=== PATIENT | female | born 2000 | race African-American/Black ===

== ENCOUNTER 2023-06-28 07:02 | Emergency (ER) | payer OTHER, SELFPAY ==
--- NOTE | ~2023-06-28 | US_ITS ---
HISTORY: HCG 86 907 Positive urine beta hCG. TECHNIQUE: The pelvis was examined via transabdominal only approaches. Calderon-scale imaging was performed, with color Doppler and spectral Doppler supplementation. COMPARISON: None. LMP unknown FINDINGS: An intrauterine gestational sac contains a pole and yolk sac. [place] rump length measures 1.15 cm, corresponding to an estimated gestational age of 7 weeks 3 days. heart rate measures 167 BPM. Mean gestational age by ultrasound measurements is 7 weeks 3 days, for an estimated date of delivery of 02/03/2024. The ovaries appear unremarkable. The right ovary measures 4.2 x 2.1 x 3.5 cm. The left ovary measures 3.3 x 2.4 x 3.9 cm. There is corpus luteum cyst measured 2.0 x 1.4 x 2.6 cm No free fluid is seen in the pelvis. US/US OB limited IMPRESSION: Single live intrauterine gestation at 7 weeks 3 days by ultrasound measurements.
--- NOTE | 2023-06-28 07:16 | ECG_ITS ---
Test Reason : DRUG USE Blood Pressure : / mmHG Vent. Rate : 080 BPM Atrial Rate : 080 BPM P-R Int : 146 ms QRS Dur : 080 ms QT Int : 398 ms P-R-T Axes : 079 060 045 degrees QTc Int : 459 ms Normal sinus rhythm with sinus arrhythmia Septal infarct , age undetermined Abnormal ECG No previous ECGs available Referred By: Generic ED Physician Electronically Signed By:FAUSTINO JAMES MD
[2023-06-28 07:19] VITALS: BP 121/84; PULSE 77; RESP 19; TEMP 36.5; O2SAT 100; BMI 22.5
[2023-06-28 07:20] VITALS: PULSE 97
--- NOTE | 2023-06-28 07:35 | ED_ITS ---
HPI - General Adult General Chief complaint: ETOH/Substance Use Stated complaint: drug reaction? Time Seen by Provider: 06/28/23 07:34 Source: patient Mode of arrival: ambulatory Limitations: other (poor historian ) History of Present Illness HPI narrative: 23 year old female presents w/ n/v/ and stating her inside hurts X few hours. Reports drank a few shots of tequila and had three bags of cocaine . States she uses cocaine periodically. Poor historian screaming help me please and I need water now . When I ask her to show me where it hurts she says i dont know.. i just need electrolytes . Difficult to obtain an accurate ROS and history Related Data Previous Rx's Medication Instructions Recorded mv-mn no.97-folic 180 mcg-dha 25 1 tab PO DAILY 30 days #30 tabs 06/28/23 mg-herb no.293 25 mg chewable tablet (Alive Daily Support ) Allergies Allergy/AdvReac Type Severity Reaction Status Date / Time No Known Allergies Allergy Verified 06/28/23 07:26 Review of Systems 2 Review of Systems: Constitutional : No Weight loss, No Fever, No Chills, No Fatigue, No Malaise ENT/Mouth : No sore throat, No Rhinorrhea Eyes: No Eye Pain, No Swelling, No Redness Cardiovascular : No Chest Pain, No SOB, No Dyspnea on Exertion, No Orthopnea, No Edema, No Palpitations Respiratory : No Cough, No Sputum, No Wheezing Gastrointestinal : + Nausea, + Vomiting, No Diarrhea, No Constipation, + abdominal Pain, No Hematochezia, No Melena Genitourinary : No Dysuria, No Urinary Frequency, No Hematuria, Musculoskeletal : No joint pain, No Myalgias, No Joint Swelling Skin : No Skin Lesions, No rash Neuro : No Weakness, No Numbness, No Dizziness, No Headache Psych : No Anxiety/Panic, No Depression All other systems reviewed and are negative Yes all other systems are reviewed and are negative PMFSH Past Medical History Attestation statement: The following information was validated with the patient. Source: old records reviewed and nursing notes reviewed Onset Date is defined in the Problem List Problems that require an onset date and time if occurred within 24 hrs of arrival to the ED Aortic Dissection and Rupture; Neurologic impairment; Cardiopulmonary Arrest; Endotracheal Intubation; Insertion or Replacement of Mechanical Circulatory Assist Device Social History Social History Smoked in Last 30 Days: Yes Use of substances other than those prescribed or required for medical reasons: Yes Substance Use Type: Crack/Cocaine and Marijuana Advance Directives: No Physical Exam ED Vital Signs: Vital Signs - 24 hr 06/28/23 07:19 Temperature 97.7 F Pulse Rate 77 Respiratory Rate 19 Blood Pressure 121/84 Pulse Oximetry 100 Oxygen Delivery Method Room Air BMI result Body Mass Index 22.5 vss Appearance: Alert.? Oriented X3.? No acute distress.? Head: Normocephalic, atraumatic, no step-offs or deformities Eyes: Pupils equal, round and reactive to light.? ENT: Pharynx normal.? Neck: Normal inspection.? Neck supple.? CVS: Normal heart rate and rhythm.? Pulses normal.? Respiratory: No respiratory distress.? Breath sounds normal.? Abdomen: Soft and nontender.? Skin: Skin warm and dry.? Normal skin color.? Normal skin turgor.? Extremities: No lower extremity edema.? No calf ttp. 5/5 strength to bilateral upper and lower extremitiesNeuro: Oriented X 3.? No motor deficit.? No sensory deficit. CN 2-12 intact Course Reevaluation(s) Reevaluation #1: CBC unremarkable. Chemistry elevated calcium. IV fluids given. Troponin negative. No other electrolyte abnormalities requiring intervention. HCG elevated. Patient doesnt know when her LMP was. Ethanol negative. Time: 09:59 Reevaluation #2: Ultrasound showing a single live intrauterine gestation 7 weeks 3 days by ultrasound, heart rate 167, no signs of ovarian torsion. Patient to be discharged home with vitamins, PCP and OBGYN follow-up here Educated patient on diagnosis and treatment plan, answered all question, patient verbalizes understanding. At this time patient will be discharged home, advised to return with new or worsening symptoms. Educated on worrisome signs and symptoms and when to return. At this time I feel comfortable discharge home. Time: 13:37 Medications Administered Discontinued Medications Generic Name Dose Route Start Last Admin Trade Name Freq PRN Reason Stop Dose Admin Diphenhydramine HCl 25 mg 06/28/23 07:37 06/28/23 08:19 Diphenhydramine Hcl 50 Mg/Ml Vial IVPUSH 06/28/23 07:38 25 mg ONCE ONE Administration Sodium Chloride 1,000 mls @ 999 mls/hr 06/28/23 07:45 06/28/23 09:54 Ns IV 06/28/23 08:45 Infused .Q1H1M KENYA Infusion Metoclopramide HCl 10 mg 06/28/23 07:37 06/28/23 08:19 Metoclopramide Hcl 10 Mg/2 Ml Vial IVPUSH 06/28/23 07:38 10 mg ONCE ONE Administration Medical Decision Making Medical Decision Making [facility] Narrative: 0736 23-year-old female presents with nausea, vomiting and abdominal pain after significant drug and alcohol use last night. Physical examination diffuse abdominal discomfort. Patient dry heaving History and physical exam concerning for alcohol intoxication/toxicity and polysubstance abuse. Low suspicion for acute abdomen, appendicitis, diverticulitis, cholecystitis, pancreatitis, obstruction. Will rule out metabolic derangements although unlikely. Will also rule out Plan- labs, fluids, meds Differential Diagnosis Differential Diagnoses: The differential diagnosis associated with the presentation includes History and physical exam concerning for alcohol intoxication/toxicity and polysubstance abuse. Low suspicion for acute abdomen, appendicitis, diverticulitis, cholecystitis, pancreatitis, obstruction. Will rule out metabolic derangements although unlikely. Will also rule out Admission/Observation Consideration of admission/observation: Escalation of care including admission/observation considered possible Lab Data [facility] Lab Attestation statement: I reviewed the patient's lab results. 06/28/23 07:55 06/28/23 07:55 Labs: Lab Results 06/28/23 Range/Units 07:55 WBC 7.8 (4.8-10.8) X10*3/uL RBC 5.23 (4.20-5.50) X10*6/uL Hgb 15.8 (12.0-16.0) g/dl Hct 45.5 (37.0-47.0) % MCV 87.0 (80.0-98.0) fL MCH 30.2 (27.0-33.0) pg MCHC 34.7 (31.0-35.0) g/dl RDW 12.8 (11.0-16.0) % Plt Count 362 (160-400) X10*3/uL MPV 9.3 L (9.4-12.3) fL Immature Gran % (Auto) 0.3 (0.0-0.4) % Neut % (Auto) 88.3 H (45-73) % Lymph % (Auto) 8.0 L (20-40) % [place] % (Auto) 3.1 (2-11) % Eos % (Auto) 0.0 (0-4) % Baso % (Auto) 0.3 (0-2) % Lymph # (Auto) 0.6 L (1.2-4.9) X10*3/uL [place] # (Auto) 0.2 (0.1-1.2) X10*3/uL Eos # (Auto) 0.0 (0.0-0.4) X10*3/uL Baso # (Auto) 0.0 (0.0-0.2) X10*3/uL Abs Immat Gran (auto) 0.02 (0.00-0.03) X10*3/uL Absolute Neuts (auto) 6.9 (2.0-8.3) x10*3/uL Absolute Nucleated RBC 0.000 (0.0-0.012) X10*3/uL Nucleated RBC % (auto) 0.0 (0.0-0.2) /100WBC Sodium 135 (135-145) mmol/L Potassium 4.3 (3.3-5.1) mmol/L Chloride 98 (96-108) mmol/L Carbon Dioxide 22 (22-29) mmol/L Anion Gap 19 (12-20) BUN 7 L (9-16) mg/dL Creatinine 0.76 (0.5-1.4) mg/dL Estim Creat Clear Calc 88.3 Estimated GFR > 60 Random Glucose 139 H (60-115) mg/dL Calcium 11.0 H (8.4-10.2) mg/dL Magnesium 1.9 (1.6-2.6) mg/dL Total Bilirubin 0.3 (0.0-1.0) mg/dL AST 22 (5-31) U/L ALT 12 (0-31) U/L Alkaline Phosphatase 83 (39-117) U/L Troponin I High Sens < 2.7 (<3.5-17.0) ng/L Total Protein 9.2 H (6.5-8.0) g/dL Albumin 4.9 (3.5-5.0) g/dL Lipase 12 (8-78) U/L Beta HCG, Quant 70860 mIU/mL Ethyl Alcohol < 10 mg/dL Independent Interpretation I performed an independent interpretation of an: EKG (Ventricular rate of 80 MI normal, QRS normal, QT/QTC normal. EKG normal sinus rhythm with sinus arrhythmia no ST elevations or inversions concerning for acute ischemia), Plain X-Ray and Ultrasound (US/US OB limited IMPRESSION: Single live intrauterine gestation at 7 weeks 3 days by ultrasound measurements. ) Radiology Impression Discussion of test interpretation with radiology: I have reviewed the radiologist's reading. Critical Care Time Critical Care Time Critical Care Time: No Discharge Plan Discharge Clinical Impression: Hangover, , Cocaine use disorder, Nausea & vomiting Patient Disposition: Home, Self-Care Instructions: (ED), Cocaine Abuse (ED), Abuse of Alcohol (ED), Acute Nausea and Vomiting (ED) Additional Instructions: Take your medications as prescribed. If you were prescribed antibiotics today, it is important that you take your medication to their entirety, do not skip any doses, do not finish them early. Follow-up with your primary care provider this week. Return to the emergency department with new or worsening symptoms. Such as fevers, chills, chest pain, shortness of breath, nausea, vomiting, dizziness, headache, vision changes, lethargy, vaginal bleeding In case of emergency call 911 Please start taking vitamins. Follow-up with OBGYN. US/US OB limited IMPRESSION: Single live intrauterine gestation at 7 weeks 3 days by ultrasound measurements. Prescriptions: New Alive Daily Support 180 mcg-25 mg- 25 mg tablet,chewable 1 tab PO DAILY 30 Days Qty: 30 0RF Referrals: [facility] [place] [facility] [Provider Group] - 2 days Jaswinder Garcia MD [Primary Care Provider] - 2 days Stand Alone Forms: Work/School Release
[2023-06-28 07:59] LABS: MANUAL DIFF FLAG NO
[2023-06-28 08:02] LABS: Basophils Percent Auto 0.3 % (0-2); Hematocrit 45.5 % (37.0-47.0); Hemoglobin 15.8 g/dl (12.0-16.0); Imm Gran Abs Auto 0.02 X10*3/uL (0.00-0.03); Imm Gran Pct Auto 0.3 % (0.0-0.4); Lymphocytes Absolute Auto 0.6 X10*3/uL (1.2-4.9); Mean Corpuscular HGB Conc 34.7 g/dl (31.0-35.0); Mean Corpuscular Hemoglobin 30.2 pg (27.0-33.0); Mean Platelet Volume 9.3 fL (9.4-12.3); Monocytes Absolute Auto 0.2 X10*3/uL (0.1-1.2); Monocytes Percent Auto 3.1 % (2-11); Neutrophils Absolute Auto 6.9 x10*3/uL (2.0-8.3); Neutrophils Percent Auto 88.3 % (45-73); Platelet Count 362 X10*3/uL (160-400); Red Blood Count 5.23 X10*6/uL (4.20-5.50); Red Cell Distribution Width 12.8 % (11.0-16.0); White Blood Count 7.8 X10*3/uL (4.8-10.8)
--- NOTE | 2023-06-28 08:05 | PC.NURSE ---
pt comes into ED after a night of partying, celebrating her 23st birthday. pt sts she drank tequila, did 3 bags of coke, and smoked marijuana. pt is nauseous sts she has been vomiting all morning. pt dry heaving in ED with one small episode of emesis. t/w attempted IV 2x on pt, blew both times. pt difficult stick due to being so dry. pt repeatedly asking for water, repeatedly told no and given ice chips for now. pt became teary and yelling for staff to help her. sts my heart is burning from the coke, I need water! DANIELLE Britt attempting IV in pt now. labs have been drawn and sent. pt on bedside monitor. rr even/unlabored. plan of care ongoing.
[2023-06-28] MEDS: 0.9 % Sodium Chloride 1,000 ML 999 ML IV (08:14)
[2023-06-28] MEDS: Metoclopramide HCl 10 MG/2 ML VIAL IVPUSH (08:19)
[2023-06-28] MEDS: diphenhydrAMINE HCL 50 MG/ML VIAL 25 MG IVPUSH (08:19)
--- NOTE | 2023-06-28 08:28 | PC.NURSE ---
Lorenza RN able to get 22G IV to pt's left hand. fluids infusing and pt medicated per mar. pt currently sleeping on stretcher, rr even/unlabored. call chung within reach. plan of care ongoing.
[2023-06-28 08:47] LABS: Alanine Aminotransferase 12 U/L (0-31); Albumin Level 4.9 g/dL (3.5-5.0); Alkaline Phosphatase 83 U/L (39-117); Anion Gap 19 (12-20); Aspartate Amino Transferase 22 U/L (5-31); Bilirubin Total 0.3 mg/dL (0.0-1.0); Blood Urea Nitrogen 7 mg/dL (9-16); Carbon Dioxide 22 mmol/L (22-29); Chloride 98 mmol/L (96-108); Creatinine Clr Calc Pharmacy 88.3; Estimated Glomerular Filt Rate > 60; Glucose Random 139 mg/dL (60-115); Lipase 12 U/L (8-78); Magnesium 1.9 mg/dL (1.6-2.6); Potassium 4.3 mmol/L (3.3-5.1); Sodium 135 mmol/L (135-145); Total Protein 9.2 g/dL (6.5-8.0)
[2023-06-28 08:49] LABS: Troponin-I High Sensitivity < 2.7 ng/L (<3.5-17.0)
[2023-06-28 09:14] LABS: Ethanol < 10 mg/dL
--- NOTE | 2023-06-28 10:03 | PC.NURSE ---
pt in ultrasound
[2023-06-28] MEDS: Prochlorperazine Edisylate 10 MG/2 ML VIAL 5 MG IVPUSH (15:03)
[2023-06-28 15:08] VITALS: BP 126/52; PULSE 65; RESP 20; TEMP 36.6; O2SAT 99
== END 2023-06-28 16:54 | disposition home or self-care (01) ==
PROVIDERS: Physician Assistant; Emergency Provider Emergency Medicine; PCP Student in an Organized Health Care Education/Training Program
DX: O99.311 Alcohol use complicating pregnancy, first trimester (principal); F10.120 Alcohol abuse with intoxication, uncomplicated; O99.321 Drug use complicating pregnancy, first trimester; F14.988 Cocaine use, unspecified with other cocaine-induced disorder; O21.8 Other vomiting complicating pregnancy; Z3A.01 Less than 8 weeks gestation of pregnancy; Y90.0 Blood alcohol level of less than 20 mg/100 ml
CPT/HCPCS: 36415; 76815; 80053; 80307; 83690; 83735; 84484; 84702; 85025; 93005; 93975; 96361; 96374; 96375; 99285; J0737; J1200; J2765

== ENCOUNTER → 2023-06-28 07:16 | Outpatient (BNV) | payer OTHER, SELFPAY | PROVIDERS: Emergency Provider Emergency Medicine; PCP Student in an Organized Health Care Education/Training Program; Visit Provider Internal Medicine Cardiovascular Disease | DX: R94.31 Abnormal electrocardiogram [ECG] [EKG] (principal) | CPT/HCPCS: 93010 ==

== ENCOUNTER 2023-07-07 13:20 | Emergency (ER) | payer OTHER, SELFPAY ==
--- NOTE | 2023-07-07 13:29 | ED_ITS ---
HPI - General Adult General Chief complaint: General Medical Stated complaint: +, wants to check on baby Time Seen by Provider: 07/07/23 13:34 Source: patient Mode of arrival: ambulatory Limitations: no limitations History of Present Illness HPI narrative: Patient is a 23 year old assigned female at with no reported medical history presenting to the emergency department today with questions regarding . Patient states that she was told on 06/28/2023 that she is but was not told what she is allowed and not allowed to do. Patient is wondering what she is allowed to eat and if she is allowed to have sex. Patient denies any vaginal bleeding, vaginal discharge, dizziness, lightheadedness, abdominal pain, nausea, vomiting, fever, chills, blurry vision, double vision, loss of vision, chest pain, difficulty breathing, shortness of breath, back pain, night sweats, pain with urination, increased urinary frequency, increased urinary urgency, blood in her urine or stool, syncope or a near syncopal episode, recent trauma or falls, bowel incontinence, bladder incontinence, bowel retention, bladder retention, or any other complaints at this time. Relieving factors: none Exacerbating factors: none Associated symptoms: denies other symptoms Treatments prior to arrival: none Related Data Previous Rx's Medication Instructions Recorded mv-mn no.97-folic 180 mcg-dha 25 1 tab PO DAILY 30 days #30 tabs 06/28/23 mg-herb no.293 25 mg chewable tablet (Alive Daily Support ) Allergies Allergy/AdvReac Type Severity Reaction Status Date / Time No Known Allergies Allergy Verified 07/07/23 13:30 Review of Systems Constitutional: Constitutional: Reports no additional constitutional complaints, Denies chills, Denies fever(s) and Denies night sweats Eyes: Eyes: Reports no additional eye complaints, Denies blurry vision, Denies change in vision, Denies diplopia, Denies eye discharge, Denies loss of vision and Denies eye pain ENT: Denies dizziness Cardiovascular: Cardiovascular: Reports no additional cardiovascular complaints, Denies chest pain, Denies lightheadedness, Denies Loss of Consciousness and Denies dyspnea Respiratory: Respiratory: Reports no additional respiratory complaints and Denies dyspnea Gastrointestinal: Gastrointestinal: Reports no additional gastrointestinal complaints, Denies abdominal pain, Denies melena, Denies hematochezia, Denies change in bowel habits and Denies change in stool character Genitourinary: Genitourinary: Denies hematuria, Denies urinary frequency, Denies dysuria, Denies urinary incontinence, Denies urinary hesitancy and Denies urinary urgency Musculoskeletal: Musculoskeletal: Reports no additional musculoskeletal complaints, Denies numbness and Denies tingling Neurologic: Denies dizziness, Denies loss of vision, Denies numbness and Denies tingling Psychiatric: Psychiatric: Reports no additional psychiatric complaints Endocrine: Endocrine: Reports no additional endocrine complaints Hematologic/Lymphatic: Hematologic/Lymphatic: Reports no additional hematologic/lymphatic complaints Allergic/Immunologic: Allergic/Immunologic: Reports no additional allergic/immunologic complaints [facility] Past Medical History Attestation statement: The following information was validated with the patient. Source: old records reviewed and nursing notes reviewed Social History Social History Substance Use Type: Crack/Cocaine and Marijuana Advance Directives: No Physical Exam ED Vital Signs: Vital Signs - 24 hr 07/07/23 13:30 Temperature 98 F Pulse Rate 105 H Respiratory Rate 19 Blood Pressure 141/68 H Pulse Oximetry 98 Oxygen Delivery Method Room Air BMI result Body Mass Index 24.6 Const General: cooperative, no acute distress, alert and awake Nutritional Appearance: well nourished Orientation/consciousness: patient oriented x3 Limitations: no limitations HENMT Head: Yes normal to inspection and Yes atraumatic Ears: hearing grossly normal bilaterally and external ears normal General nose exam: Normal external nose present, no nasal discharge noted and no epistaxis Face and sinus: Yes normal facial exam, No abrasion and No laceration Mouth: Normal oral and palatal mucosa present, no drooling and no muffled voice Eyes General: appearance normal, both eyes and all related structures Periorbital: periorbital findings normal Eyelids: Yes eyelids normal Conjunctivae: conjunctivae normal Pupils: Equal, round and reactive pupils present EOM: EOMs intact bilaterally Neck Neck: Yes normal visual inspection, Yes full ROM and Yes no lymphadenopathy Chest Chest palpation & inspection: normal inspection of the chest Resp Effort & Inspection: normal respiratory effort and able to speak in complete sentences GI Inspection: Yes normal to inspection Neuro General: patient oriented x3 and moves all extremities Cranial nerves: Yes Equal, round and reactive pupils present Cognition (Neuro): normal cognition Motor exam (neuro): 5/5 motor strength present throughout Sensory Exam: Normal double simultaneous stimulation for sensation Coordination: [id number] test normal Extrem General: Yes normal to inspection, Yes full ROM and Yes capillary refill normal Psych Appearance: grossly normal Mental Status: mental status grossly normal Affect: normal affect Attitude: cooperative Thought process: Normal thought process present Thought content: Normal thought content present Insight: Good insight present (Psych) Medical Decision Making Medical Decision Making MDM Narrative: Patient is a 23 year old assigned female at with no reported medical history presenting to the emergency department today with questions about . Patient's physical exam was unremarkable. I explained my physical exam findings to the patient. I answered all questions asked by the patient including what she can and cannot eat during and whether or not she can have intercourse during . I stressed the importance of the patient taking her medication as prescribed. I stressed the importance of the patient following up with her primary care provider and her OBGYN with which she has an appointment in 3 weeks. I stressed the importance of the patient returning to the emergency department immediately if she were to develop any vaginal bleeding, vaginal discharge, dizziness, shortness of breath, difficulty breathing, chest pain, blurry vision, loss of vision, nausea, vomiting, abdominal pain, fever, chills, back pain, or any other complaints. Patient verbalized agreement and understanding with this treatment plan and discharge. Differential Diagnosis Differential Diagnoses: The differential diagnosis associated with the presentation includes Discharge Plan Discharge Clinical Impression: Patient Disposition: Home, Self-Care Instructions: (ED) Additional Instructions: Follow up with your primary care provider and your OBGYN. Return to the emergency department immediately if you develop any vaginal discharge, vaginal bleeding, dizziness, shortness of breath, difficulty breathing, chest pain, blurry vision, loss of vision, nausea, vomiting, abdominal pain, fever, chills, back pain, or any other complaints. Prescriptions: No Action Alive Daily Support 180 mcg-25 mg- 25 mg tablet,chewable 1 tab PO DAILY 30 Days Qty: 30 0RF Interventions: ED Discharge Assessment Last Done: 07/07/23 13:34 Discharge Date/Time: 07/07/23 13:37 Print Language: Sinhala
[2023-07-07 13:30] VITALS: BP 141/68; PULSE 105; RESP 19; TEMP 36.6; O2SAT 98; BMI 24.6
== END 2023-07-07 13:37 | disposition home or self-care (01) ==
LOC: HO.ED 13:35
PROVIDERS: Emergency Provider Emergency Medicine
DX: O26.899 Other specified pregnancy related conditions, unspecified trimester (principal); Z3A.00 Weeks of gestation of pregnancy not specified
CPT/HCPCS: 99282